=== PATIENT | male | born 1950 | race Caucasian/White ===

== ENCOUNTER 2017-11-16 15:51 | Emergency (ER) | payer BC, OTHER ==
[2017-11-16 15:58] VITALS: BP 120/75; PULSE 77; RESP 16; TEMP 97.5; O2SAT 94
--- NOTE | 2017-11-16 16:16 | EDPHY ---
H & P Smoking Status: Former smoker Time Seen by Provider: 11/16/17 16:03 HPI/ROS: CHIEF COMPLAINT: Diarrhea x2 weeks HISTORY OF PRESENT ILLNESS: 67-year-old male visiting from [place], been here for the past 2 months as his daughter is currently at [facility] being treated for pancreatic cancer. He notes that for the past 2 weeks every morning he will wake up, have drink of coffee and then have an episode of diarrhea. He will then take 1 Imodium and this will last him for 24 hr. At no point does or did he experience abdominal pain. He does note that his daughter was treated several weeks ago for C diff colitis. He has not been experiencing melena, hematochezia, pus in stool. No fever or chills. No back or flank pain. No nausea or vomiting. He is tolerating full oral intake. Currently asymptomatic. No untreated water sources. No international travel. No antibiotic use. PRIMARY CARE PROVIDER: [place] REVIEW OF SYSTEMS: A ten point review of systems was performed and is negative with the exception of the items mentioned in the HPI PAST MEDICAL & SURGICAL HISTORY: No history of chronic abdominal pathology. SOCIAL HISTORY: Nonsmoker . Visiting from [place]. In this area and definitely. FAMILY HISTORY: No pertinent family history PHYSICAL EXAM (Prior to examination, patient consented to physical exam, hands were washed and my usual and customary physical exam procedures followed) 1) GENERAL: Well-developed, well-nourished, alert and oriented. Appears to be in no acute distress. Smiling, sitting upright. Appears well. 2) HEAD: Normocephalic, atraumatic 3) HEENT: Pupils equal, round, reactive to light bilaterally. Sclera anicteric. Nasopharynx, oropharynx, clear, no lesions. Moist mucous membrane Ears bilaterally with normal tympanic membranes. 4) NECK: Full range of motion, no meningeal signs. 5) LUNGS: Clear auscultation bilaterally, no wheezes, no rhonchi, no retractions. 6) HEART: Regular rate and rhythm, no murmur, no heave, no gallop. 7) ABDOMEN: No guarding, no rebound, no focal tenderness, negative McBurney's, negative Betancourt's, negative Rovsing's, negative peritoneal sign, I am unable to elicit any abdominal pain on exam 8) MUSCULOSKELETAL: Moving all extremities, no focal areas of tenderness, no obvious trauma. No peripheral edema or discoloration. 9) BACK: No CVA tenderness, no midline vertebral tenderness, no fluctuance, no step-off, no obvious trauma, no visual or palpable abnormality. 10) SKIN: No rash, no petechiae. 11) Psychiatric: Patient is oriented X 3, there is no agitation. DIFFERENTIAL DIAGNOSIS: In no particular order including but not limited to infectious diarrhea, functional diarrhea, C diff colitis (Caren Nichols) Constitutional: Initial Vital Signs Temperature (C) 36.4 C 11/16/17 15:55 Heart Rate 77 11/16/17 15:55 Respiratory Rate 16 11/16/17 15:55 Blood Pressure 120/75 11/16/17 15:55 O2 Sat (%) 94 11/16/17 15:55 O2 Delivery Mode Room Air Allergies/Adverse Reactions: codeine Allergy (Mild, Verified 11/16/17 15:54) GI upset Home Medications: Medication Instructions Recorded Loperamide HCl [IMODIUM A-D] 1 mg PO 11/16/17 MDM/Departure - MDM ED Course/Re-evaluation: This patient appears well, he is smiling, has a nontender abdomen, moist mucous membranes, tolerating full oral intake with normal urine output. He is currently asymptomatic. He notes that his symptoms this occur primarily in the morning after his sip of coffee. At this time I think that acute surgical abdominal pathology is less than likely, doubt diverticulitis, doubt bowel obstruction. He is unable to provide stool sample at this time. He does note that his daughter was treated few weeks ago for C diff colitis and while this may be the etiology of symptoms, I think that this is less than likely given the lack of frequency of his loose stools. Will hold on empiric treatment at this time. Have recommended a stool sample prior to initializing antibiotic therapy, if indicated. Plan at this time will be follow up with Gastroenterology. To return to ER should she develop new or worsening symptoms. He feels comfortable with this plan. Care of patient under supervision of secondary supervising physician Dr Arron Rene. (Caren Nichols Gaby) I did not see this patient while he was in the emergency department. However his care was discussed with the PA while the patient was in the department. I agree with treatment plan and management (Arron Rene) - Depart Disposition: Home, Routine, Self-Care Clinical Impression: Diarrhea Qualifiers: Diarrhea type: unspecified type Qualified Code(s): R19.7 - Diarrhea, unspecified Condition: Good Instructions: Chronic Diarrhea (ED) Additional Instructions: Return to the ER if you develop abdominal pain, fevers, or any other symptoms that concern you Referrals: Evgeny Franco MD [Medical Doctor] - 2-3 days, call for appt. (Dr Franco is a senior geotechnical engineer)
== END 2017-11-16 16:28 | disposition home or self-care (01) ==
DX: R19.7 Diarrhea, unspecified (principal); Z87.891 Personal history of nicotine dependence